=== PATIENT | female | born 1965 | race African-American/Black ===

== ENCOUNTER → 2018-06-15 | Outpatient (CLI) | payer BC ==
[2014-11-10 10:04] VITALS: BP 119/59
--- NOTE | 2018-06-15 08:56 | RAD ---
CT ABDOMEN PELVIS WO CONTRAST dated 06/15/2018 8:30 AM Indication: Pain, hematuriaHEMATURIA. FLANK PAIN FOR MONTHS. NO PREVIOUS. Comparison: No comparison is available. Technique: Contiguous axial imaging the abdomen and pelvis performed without the administration of intravenous contrast. One or more of the following individualized dose reduction techniques were utilized for this examination: 1. Automated exposure control 2. Adjustment of the mA and/or kV according to patient size 3. Use of iterative reconstruction technique Findings: Limited images of lung bases are clear. Heart size within normal limits. There is a 3 mm noncalcified pulmonary nodule in the left lower lobe on image 4. No pleural or pericardial effusion. Solid abdominal viscera not well evaluated in the absence of contrast material. There are well-defined low-density foci in the left lobe liver that most likely represent cysts. No biliary ductal dilatation. Gallbladder unremarkable. Spleen is normal in size. Pancreas, adrenal glands and kidneys unremarkable. No stone or hydronephrosis. Unopacified GI tract normal in caliber and contour. No focal bowel wall thickening. No inflammatory stranding in the mesentery. The appendix is normal in caliber. No ascites or lymphadenopathy. There are a few scattered diverticula within the distal colon. Abdominal aorta normal in caliber. Images of pelvis show nondistended urinary bladder. No calcific bladder stone. Uterus and adnexa are unremarkable. No free fluid or lymphadenopathy. There is some soft tissue density extending through a small inguinal hernia defect on the left. There is also possible small inguinal hernia on the right. Bone windows show no acute findings. Mild lower lumbar spondylosis. IMPRESSION: 1. No acute abnormality of abdomen or pelvis. No renal stone or hydronephrosis. 2. Small noncalcified pulmonary nodule in the left lower lobe, nonspecific. Follow-up imaging in one year to ensure stability 3. Small left inguinal hernia containing soft tissue density which could represent displaced vessels or venous varicosities. Indicated, CT with contrast or ultrasound better evaluate. There is also possible small inguinal hernia on the right. 4. Diverticulosis. 5. Normal appendix. Electronically signed by: Juan Carlos Diaz MD (06/15/2018 8:53 AM) [id number]
== END | disposition home or self-care (01) ==
LOC: CT 08:15
PROVIDERS: ATTEND Nurse Practitioner Family
DX: K57.90 Diverticulosis of intestine, part unspecified, without perforation or abscess without bleeding (principal); K40.90 Unilateral inguinal hernia, without obstruction or gangrene, not specified as recurrent; R31.9 Hematuria, unspecified; R91.1 Solitary pulmonary nodule; Z88.0 Allergy status to penicillin
CPT/HCPCS: 74176

== ENCOUNTER → 2021-04-12 | Outpatient (CLI) | payer BC ==
[2014-11-10 10:04] VITALS: BP 119/59
--- NOTE | 2021-04-19 13:24 | KCIC ---
Bilateral digital screening mammograms with 3-D tomosynthesis: Reason for examination: Routine screening. New baseline. Bilateral mammograms in CC and oblique projections were obtained with 2-D imaging and 3-D tomosynthes is imaging on a Siemens Inspiration unit and reviewed on the workstation. Interpretation was made isaac h the benefit of CAD. The skin and nipples show no abnormalities. No abnormal axillary lymph nodes are seen. The breast par enchyma shows scattered fatty and fibroglandular density. (Breast density: Category B.) There are sma ll nodular parenchymal densities present at the 9:30 B position of the right breast and at the 2:00 B , 2:30 B and 8:00 B positions of the left breast. Recommend further evaluation with ultrasound. There are no other dominant masses, suspicious calcifications or architectural distortion. Impression: Small nodular densities bilaterally. Ultrasound follow-up is recommended. BI-RAD Category 0: Incomplete. Needs additional imaging evaluation. "Our facility is accredited by the [employer] Mammography Program." This patient's information has been entered into a reminder system for the patient to be notified wit paz the results of her examination and a target date for the next mammogram. Electronically signed by: Kate Ruiz MD (04/19/2021 1:22 PM) [id number]
== END ==
LOC: KCIC MAMMO 13:41
PROVIDERS: ATTEND Nurse Practitioner Family
DX: Z12.31 Encounter for screening mammogram for malignant neoplasm of breast (principal)
CPT/HCPCS: 77063; 77067

== ENCOUNTER → 2021-05-08 | Outpatient (CLI) | payer BC ==
[2014-11-10 10:04] VITALS: BP 119/59
--- NOTE | 2021-05-08 14:36 | KCIC ---
Procedure: Bilateral breast ultrasound, complete. INDICATION: Screening mammogram shows a small oval circumscribed masses both breasts. COMPARISON: Mammogram from 04/12/2021. TECHNIQUE: All 4 quadrants, retroareolar regions, and the axilla were imaged. Right: In the 9:30 position, 5.5 cm from the nipple, there is a 6 mm oval circumscribed hypoechoic m ass. This shows internal blood flow. In the 2:30 position, 6 cm from the nipple, there is an oval hy poechoic mass which measures 9 mm in maximum dimension. Left: In the 2:30 position, 6 cm from nipple, close to the skin, there is a 7 mm intramammary lymph n ode. In the 8:00 position, 6 cm from the nipple, there is a 8 mm oval hypoechoic mass. No morphologically abnormal axillary lymph nodes are seen. IMPRESSION: There small probably benign hypoechoic oval circumscribed masses in both breasts which ar e correlates for masses seen on mammogram. No suspicious breast mass is seen. ASSESSMENT: BI-RADS 3. Probably benign findings. Short interval follow-up is recommended. Recommendations: Bilateral breast ultrasound in 6 months. Results were given to the patient at the time of the exam. Her information will be entered into the ammography reminder system and target recall date determined for her follow-up breast ultrasound. A r yesyinder letter will be sent. Electronically signed by: Minerva Garibay MD (05/08/2021 2:34 PM) [email or web address]
== END ==
LOC: KCIC US 13:02
PROVIDERS: ATTEND Nurse Practitioner Family
DX: R92.2 Inconclusive mammogram (principal)
CPT/HCPCS: 76641

== ENCOUNTER → 2021-05-18 | Day surgery (SDC) | payer BC ==
[~2021-05-18] VITALS: Ht 166.4 cm; Wt 81.0 kg
[~2021-05-18] MED LIST: DIPH25TA64 PO; IRON18TA PO; IV RINGERS,LACTATED 1000ML 1,000 ML IV SCH; LIDOCAINE 2% PF 5 ML VIAL. ONE; PROPOFOL 10 MG/ML (20ML) VIAL. IV ONE
[2021-05-18 08:51] VITALS: BP 130/74
[2021-05-18 10:30] VITALS: BP 112/69
--- NOTE | 2021-05-18 10:44 | PREOP HP ---
DATE OF SERVICE: 05/18/2021 REFERRING PHYSICIAN: Karla Wilder. REASON FOR CONSULTATION: Colorectal screening. HISTORY: A 56-year-old female with past medical history significant for osteoarthrosis and anemia, seen for interval colonoscopy. Bowel habits are regular without diarrhea or constipation. There has been no melena and/or hematochezia. Weight and appetite are stable. She is otherwise without additional complaints. PAST MEDICAL HISTORY: Osteoarthrosis. ALLERGIES: TO PENICILLIN, LATEX. MEDICATIONS: Include diphenhydramine and iron. FAMILY AND SOCIAL HISTORY: Significant for diabetes. She is a nonsmoker, former drinker. PAST SURGICAL HISTORY: Significant for tonsils and bilateral carpal tunnel. REVIEW OF SYSTEMS: Per records. PHYSICAL EXAMINATION: GENERAL: Reveals a well-nourished, well-developed female who is alert, cooperative, in no acute distress. VITAL SIGNS: Temperature 97, pulse 71, respiratory rate is 20. LUNGS: Clear. CARDIOVASCULAR: Reveals S1, S2, without S3, S4 or appreciable murmur. ABDOMEN: Reveals a soft abdomen, normal bowel sounds, without appreciable hepatosplenomegaly. EXTREMITIES: Reveals no cyanosis, clubbing or edema. IMPRESSION: Colorectal screening is warranted at this time. Risks and benefits of procedure including risk of hemorrhage and perforation with operation were discussed. The patient is willing to proceed at this time. NELL DR: Orquidea TID: [id number]
== END | disposition home or self-care (01) ==
LOC: ENDOS 08:23
PROVIDERS: ATTEND Internal Medicine Gastroenterology
DX: Z12.11 Encounter for screening for malignant neoplasm of colon (principal); K64.0 First degree hemorrhoids; K63.89 Other specified diseases of intestine; M19.90 Unspecified osteoarthritis, unspecified site; Z79.899 Other long term (current) drug therapy; Z98.890 Other specified postprocedural states; Z88.0 Allergy status to penicillin; Z91.040 Latex allergy status
CPT/HCPCS: 45378; J2704